=== PATIENT | male | born 1955 | race Caucasian/White ===

== ENCOUNTER 2023-12-07 09:32 | Day surgery (SDC) | payer MEDICARE, BC, MEDICAID ==
[2023-12-03 15:25] LABS: BASOPHILS # (AUTO) 0.1 X10'3 (0-0.2); BASOPHILS % (AUTO) 0.9 % (0-1); EOSINOPHILS # (AUTO) 0.5 X10'3 (0-0.9); EOSINOPHILS % (AUTO) 5.2 % (0-6); LYMPHOCYTES # (AUTO) 2.6 X10'3 (1.1-4.8); LYMPHOCYTES % (AUTO) 27.3 % (21-51); MEAN CORPUSCULAR HEMOGLOBIN 30.2 PG (27.0-31.0); MEAN CORPUSCULAR HGB CONC 33.8 g/dL (33.0-36.5); MEAN CORPUSCULAR VOLUME 89.6 FL (78-98); MEAN PLATELET VOLUME 7.3 FL (7.4-10.4); MONOCYTES # (AUTO) 0.8 X10'3 (0-0.9); MONOCYTES % (AUTO) 8.6 % (2-12); NEUTROPHILS # (AUTO) 5.6 X10'3 (1.8-7.7); PRE OP HEMATOCRIT 42.9 % (42.0-52.0); PRE OP HEMOGLOBIN 14.5 g/dL (14.0-17.9); PRE OP PLATELET COUNT 313 X10'3 (140-440); PRE OP WHITE BLOOD COUNT 9.6 10'3 (4.8-10.8); RED BLOOD COUNT 4.79 X10'6 (4.70-6.10); RED CELL DISTRIBUTION WIDTH 13.8 % (11.5-14.5)
[2023-12-03 15:39] LABS: ALBUMIN 3.5 G/DL (3.4-5.0); ALBUMIN/GLOBULIN RATIO 1.1 (1.1-1.5); ALKALINE PHOSPHATASE 111 IU/L (46-116); BLOOD UREA NITROGEN 12 MG/DL (7-18); BUN/CREATININE RATIO 16.4 (10.0-20.0); CALCIUM 8.4 MG/DL (8.5-10.1); CHLORIDE 105 MMOL/L (99-107); CREATININE 0.73 MG/DL (0.60-1.10); PRE OP ALT 29 U/L (30-65); PRE OP ANION GAP 3 (8-16); PRE OP AST 19 U/L (10-37); PRE OP BILIRUB, TOTAL 0.3 MG/DL (0.0-1.0); PRE OP GLUCOSE 102 MG/DL (70-104); PRE OP POTASSIUM 3.8 MMOL/L (3.4-5.1); PRE OP SODIUM 139 MMOL/L (135-145); TOTAL CARBON DIOXIDE 31.1 MMOL/L (24-32); TOTAL PROTEIN 6.8 G/DL (6.4-8.2); eGFR > 90 ML/MIN
[~2023-12-07] VITALS: Ht 167.6 cm; Wt 105.3 kg
[2023-12-07] MEDS: cefazolin 2gm/D5W 100mL 100 ML IV ONE (05:30)
[~2023-12-07 09:32] MED LIST: ACET-1995 PO; ALBU18HF2 INH; ASPI81TA52 PO; FINA5TAB11 PO; FLUT1AER INH; GABA-532 PO; IBUP-1984 PO; LEVO200T8 PO; LEVO25TA7 PO; LISI5TAB22 PO; TAMS0.4C32 PO
[2023-12-07 09:48] VITALS: BP 128/78; PULSE 68; RESP 16; TEMP 97.9; O2SAT 96
[2023-12-07] MEDS: famotidine 20mg tablet PO ONE (10:22)
[2023-12-07] MEDS: ringers solution, lacted 1,000 ML IV SCH ×2 (10:22→12:41)
[2023-12-07] MEDS ORDERED: morphine 2 MG/ML inj. syringe IV PRN (11:10)
[2023-12-07] MEDS ORDERED: morphine 4 MG/ML inj SYRINge IV PRN (11:10)
[2023-12-07] MEDS ORDERED: meperidine/PF 25mg/ml syringe IV PRN ×2 (11:10)
[2023-12-07] MEDS ORDERED: acetaminophen 1,000mg/100ml IV 100 ML IV ONE (11:10)
[2023-12-07] MEDS ORDERED: ondansetron/PF 4mg/2ml inj IV PRN (11:10)
[2023-12-07] MEDS ORDERED: proCHLORperazine 10 MG/2 ml inj IV PRN (11:10)
[2023-12-07] MEDS ORDERED: LIDOcaine 0.5% (5mg/ml) 50ml vial ONE (11:25)
[2023-12-07] MEDS ORDERED: fentaNYL/PF 50MCG/1 ML 2ML syringe ONE (11:30)
[2023-12-07] MEDS ORDERED: midazolam 1 mg/ML 2ml injection ONE (11:31)
[2023-12-07] MEDS ORDERED: propofol inj 20 ML IV ONE (11:53)
[2023-12-07 12:00] VITALS: BP 143/89; PULSE 70; RESP 16; O2SAT 95
[2023-12-07] MEDS: BUPIVAcaine/PF 2.5mg/ml (0.25%) 10ml vial IJ ONE (12:04)
[2023-12-07 12:10] VITALS: BP 159/91; PULSE 63; RESP 17; O2SAT 92
[2023-12-07 12:20] VITALS: BP 160/95; PULSE 63; RESP 16; O2SAT 92
[2023-12-07 12:25] VITALS: RESP 17
[2023-12-07] MEDS: HYDROcodone/acetaminophen 5mg/325mg tablet PO ONE (12:25)
== END 2023-12-07 12:45 | disposition home or self-care (01) ==
LOC: PAS 09:32
PROVIDERS: ATTEND Orthopaedic Surgery Hand Surgery
DX: G56.01 Carpal tunnel syndrome, right upper limb (principal); I10 Essential (primary) hypertension; E03.9 Hypothyroidism, unspecified; I20.9 Angina pectoris, unspecified; G47.33 Obstructive sleep apnea (adult) (pediatric); I25.2 Old myocardial infarction; M19.90 Unspecified osteoarthritis, unspecified site; Z79.1 Long term (current) use of non-steroidal anti-inflammatories (NSAID); Z79.82 Long term (current) use of aspirin; Z79.890 Hormone replacement therapy; Z79.891 Long term (current) use of opiate analgesic; Z79.899 Other long term (current) drug therapy; Z96.643 Presence of artificial hip joint, bilateral; Z98.890 Other specified postprocedural states; Z91.040 Latex allergy status
CPT/HCPCS: 29848; 36415; 80053; 82948; 85025; A4215; A6449; A7000; J0690; J2001; J2250; J2704; J3010; J3490; J7030; J7120; Z7506; Z7512; Z7610

== ENCOUNTER 2024-01-11 06:44 | Day surgery (SDC) | payer BC, MEDICAID ==
[2024-01-06 15:30] LABS: BASOPHILS # (AUTO) 0.1 X10'3 (0-0.2); EOSINOPHILS # (AUTO) 0.3 X10'3 (0-0.9); EOSINOPHILS % (AUTO) 2.1 % (0-6); LYMPHOCYTES # (AUTO) 2.7 X10'3 (1.1-4.8); LYMPHOCYTES % (AUTO) 22.9 % (21-51); MEAN CORPUSCULAR HEMOGLOBIN 30.3 PG (27.0-31.0); MEAN CORPUSCULAR HGB CONC 33.8 g/dL (33.0-36.5); MEAN CORPUSCULAR VOLUME 89.8 FL (78-98); MEAN PLATELET VOLUME 7.2 FL (7.4-10.4); MONOCYTES # (AUTO) 0.9 X10'3 (0-0.9); MONOCYTES % (AUTO) 7.9 % (2-12); NEUTROPHILS # (AUTO) 7.9 X10'3 (1.8-7.7); NEUTROPHILS % (AUTO) 66.1 % (42-75); PRE OP HEMATOCRIT 43.4 % (42.0-52.0); PRE OP HEMOGLOBIN 14.7 g/dL (14.0-17.9); PRE OP PLATELET COUNT 303 X10'3 (140-440); RED BLOOD COUNT 4.83 X10'6 (4.70-6.10); RED CELL DISTRIBUTION WIDTH 13.6 % (11.5-14.5)
[2024-01-06 15:34] LABS: ALBUMIN 3.6 G/DL (3.4-5.0); ALKALINE PHOSPHATASE 110 IU/L (46-116); BLOOD UREA NITROGEN 12 MG/DL (7-18); BUN/CREATININE RATIO 14.5 (10.0-20.0); CALCIUM 8.7 MG/DL (8.5-10.1); CHLORIDE 103 MMOL/L (99-107); CREATININE 0.83 MG/DL (0.60-1.10); PRE OP ALT 15 U/L (30-65); PRE OP ANION GAP 7 (8-16); PRE OP AST 16 U/L (10-37); PRE OP BILIRUB, TOTAL 0.6 MG/DL (0.0-1.0); PRE OP GLUCOSE 91 MG/DL (70-104); PRE OP POTASSIUM 3.5 MMOL/L (3.4-5.1); PRE OP SODIUM 140 MMOL/L (135-145); TOTAL CARBON DIOXIDE 29.8 MMOL/L (24-32); TOTAL PROTEIN 7.2 G/DL (6.4-8.2); eGFR > 90 ML/MIN
[~2024-01-11] VITALS: Ht 167.6 cm; Wt 105.2 kg
[2024-01-11] VITALS (9 sets, daily range): BP systolic 128–146; BP diastolic 53–84; PULSE 53–68; RESP 11–16; TEMP 98; O2SAT 94–98
[2024-01-11] MEDS: cefazolin 2gm/D5W 100mL 100 ML IV ONE (05:30)
[~2024-01-11 06:44] MED LIST changes: +albuterol 2.5 MG/3 ML nebule NEB PRN
[2024-01-11] MEDS ORDERED: morphine 4 MG/ML inj SYRINge IV PRN (07:40)
[2024-01-11] MEDS ORDERED: ondansetron/PF 4mg/2ml inj IV PRN (07:40)
[2024-01-11] MEDS ORDERED: ringers solution, lacted 1,000 ML IV SCH (07:40)
[2024-01-11] MEDS ORDERED: morphine 2 MG/ML inj. syringe IV PRN (07:40)
[2024-01-11] MEDS ORDERED: labetalol 5mg/ml 20ml inj. IV PRN (07:40)
[2024-01-11] MEDS: ringers solution, lacted 1,000 ML IV SCH (08:11)
[2024-01-11] MEDS: famotidine 20mg tablet PO ONE (08:11)
[2024-01-11] MEDS ORDERED: fentaNYL/PF 50MCG/1 ML 2ML syringe ONE (09:09)
[2024-01-11] MEDS ORDERED: MIDAZolam 1 MG/ML 5ML VIAL ONE (09:09)
[2024-01-11] MEDS: BUPIVAcaine/PF 2.5mg/ml (0.25%) 10ml vial ONE (14:03)
[2024-01-11] MEDS: LIDOcaine 2% (20mg/ml) 5ml vial ONE (14:03)
== END 2024-01-11 11:25 | disposition home or self-care (01) ==
LOC: PAS 06:44
PROVIDERS: ATTEND Orthopaedic Surgery Hand Surgery
DX: G56.02 Carpal tunnel syndrome, left upper limb (principal); I10 Essential (primary) hypertension; E66.9 Obesity, unspecified; E03.9 Hypothyroidism, unspecified; G47.33 Obstructive sleep apnea (adult) (pediatric); M19.90 Unspecified osteoarthritis, unspecified site; Z79.82 Long term (current) use of aspirin; Z79.890 Hormone replacement therapy; Z79.891 Long term (current) use of opiate analgesic; Z79.899 Other long term (current) drug therapy; Z68.37 Body mass index [BMI] 37.0-37.9, adult; Z88.8 Allergy status to other drugs, medicaments and biological substances; Z91.040 Latex allergy status
CPT/HCPCS: 29848; 36415; 80053; 82948; 85025; J0690; J2250; J3010; J3490; J7030; J7120; Z7506; Z7512; A4215; A6449; A7000